=== PATIENT | female | born 1940 | race Caucasian/White ===

== ENCOUNTER → 2017-03-04 | Outpatient (CLI) | payer OTHER ==
[~2017-03-04] MED LIST: AMLODIPINE BESY10 MG; GLUCOPHAGE500 MG; LIPITOR40 MG; METOPROLOL SUCC25 M1; NAPROSYN375 MG PO; QUINU10 PD; SYNTHROID175 MCG
--- NOTE | ~2017-03-04 | 2DMMODE ---
[facility] [address] [place] [address] 2 D/M-MODE ECHOCARDIOGRAM Name: MARSHALL TREVIÑO Room #: [facility] [id number] Admission: 03/04/17 Attend Phys: Kole Raphael, Discharge: Date of : 36 Date of Service: 03/04/17 1807 Report #: [id number] THIS REPORT FOR: //name// APPROVED REPORT Study performed: 03/04/2017 13:34:35 EXAM: Comprehensive 2D, Doppler, and color-flow Echocardiogram Patient Location: Out-Patient Status: routine Other Information Study Quality: Poor Indications Hypertension/HDD Hx Dizziness, fell 2 weeks ago 2D Dimensions RVDd: 36.47 mm LVEF(%): 52.13 (>50%) IVSd: 11.53 (7-11mm) LVOT Diam: 19.91 (18-24mm) LVDd: 43.80 mm PWd: 10.86 (7-11mm) Ascending Ao: 35.23 (22-36mm) LVDs: 32.19 (25-40mm) Aortic Root: 29.91 mm IVC: 0.90 mm Villalpando's LVEF: 52.13 % Volumes Left Atrial Volume (Systole) Single Plane 4CH: 56.85 mL Single Plane 2CH: 60.41 mL LA ESV Index: 39.00 mL/m2 Aortic Valve AoV Peak Wade.: 1.66 m/s AO Peak Gr.: 11.81 mmHg LVOT Max P.51 mmHg LVOT Max V: 0.79 m/s OWEN Vmax: 1.48 cm2 Mitral Valve E/A Ratio: 0.7 MV Decel. Time: 335.39 ms MV E Max Wade.: 0.77 m/s MV A Wade.: 1.06 m/s MV PHT: 97.26 ms [facility] [place] [address] 2 D/M-MODE ECHOCARDIOGRAM Name: STROKEMARSHALL Room #: [facility]#: [id number] Admission: 03/04/17 Attend Phys: Kole Raphael, Discharge: Date of : 36 Date of Service: 03/04/17 1807 Report #: [id number] IVRT: 119.95 ms Pulmonary Valve PV Peak Wade.: 0.95 m/s PV Peak Gr.: 3.59 mmHg Pulmonary Vein P Vein S: 0.46 m/s P Vein A: 0.31 m/s P Vein D: 0.32 m/s P Vein A Dur.: 138.4 msec P Vein S/D Ratio: 1.44 Tricuspid Valve TR Peak Wade.: 2.53 m/s RAP Estimate: 5.00 mmHg TR Peak Gr.: 25.55 mmHg PA Pressure: 31.00 mmHg Left Ventricle The left ventricle is normal size. There is normal LV segmental wall motion. Borderline concentric left ventricular hypertrophy. The left ventricular systolic function is normal. The left ventricular ejection fraction is within the normal range. LVEF is 55%. Grade I - abnormal relaxation pattern. Right Ventricle The right ventricle is normal size. The right ventricular systolic function is normal. Atria Left atrium is dilated. The right atrium size is normal. Aortic Valve The aortic valve is not well visualized but appears mildly sclerotic No aortic regurgitation. There is no aortic valvular stenosis. Mitral Valve Mitral valve leaflets are mildly thickened. Mild mitral annular calcification. Mild mitral regurgitation. No evidence of mitral valve stenosis. Tricuspid Valve The tricuspid valve is normal in structure. There is trace tricuspid regurgitation. The right atrial pressure is estimated at 5 mmHg. There is mild pulmonary hypertension with an estimated PAP of 31 mmHg. Pulmonic Valve [place] [address] [place] [address] 2 D/M-MODE ECHOCARDIOGRAM Name: MARSHALL TREVIÑO Room #: REG CL [facility]#: [id number] Admission: 03/04/17 Attend Phys: Kole Raphael, Discharge: Date of : 36 Date of Service: 03/04/17 1807 Report #: [id number] The pulmonary valve is normal in structure. Trace pulmonic regurgitation. Great Vessels The aortic root is normal in size. The ascending aorta is normal in size. IVC is normal in size and collapses >50% with inspiration. Pericardium There is no pericardial effusion. <Conclusion> The left ventricular systolic function is normal. There is normal LV segmental wall motion. LVEF 55%. Grade I diastolic dysfunction Possible lipomatous hypertrophy of atrial septum The aortic valve is not well visualized but appears mildly sclerotic. No aortic regurgitation or stenosis. Mild mitral annular calcification. Mild mitral regurgitation. Pulmonary artery pressure of 30mmHg There is no pericardial effusion. <ELECTRONICALLY SIGNED> By: Kole Raphael MD, [facility] 03/04/171806 06 06 Kole Raphael MD, FAC /INF
== END ==
LOC: CV 07:13
DX: I10 Essential (primary) hypertension (principal); I34.0 Nonrheumatic mitral (valve) insufficiency; E78.5 Hyperlipidemia, unspecified

== ENCOUNTER → 2017-03-21 | Outpatient (CLI) | payer OTHER | LOC: MRI 13:01 | DX: G91.2 (Idiopathic) normal pressure hydrocephalus (principal) ==

== ENCOUNTER 2019-04-15 16:47 | Inpatient (IN) | payer OTHER ==
[~2019-04-15] VITALS: Ht 157.5 cm; Wt 69.6 kg
--- NOTE | ~2019-04-15 | HC ---
[facility] [place] [address] CONSULTATION Name: MARSHALL TREVIÑO Room #: 357-P ADM IN M.R.#: [id number] Admission: 04/15/19 Attend Phys: Venessa Cortez Discharge: Date of : 36 Report #: [id number] THIS REPORT FOR: //name// CC: Linus Reynolds DATE OF SERVICE: 04/19/2019 HISTORY OF PRESENT ILLNESS: The patient is an 78-year-old white female admitted with right-sided low back pain and bruise over her sacrum, right knee pain, acute renal insufficiency. She is noted to have lumbar spondylosis and has multiple prior vertebral compression fractures, thought to be either old or indeterminate. She has some right knee pain, thought to have suspected gout for which she has been started on colchicine with some overall improvement. X-rays of the right knee were negative. She has some gait instability, was noted to have decreased balance with retropulsive tendency and has been diagnosed with a neurologic gait dysfunction. She really has a multifactorial gait instability. PAST MEDICAL HISTORY: Includes hypertension, diabetes mellitus type 2, hyperlipidemia. She has had prior NPH with a CONTACT CLERK shunt, history of gout, abdominal aortic aneurysm. She has an abdominal wall ventral hernia without obstruction. MEDICATIONS: Please see the full medication listing. FAMILY HISTORY: Noncontributory. ALLERGIES: CODEINE, PENICILLIN, AND SULFA. SOCIAL HISTORY: Lives alone, house, one step. ____ utilized a cane. She does have a closely involved family. REVIEW OF SYSTEMS: Did not offer any current complaints of chest pain, shortness of breath or abdominal discomfort. PHYSICAL EXAMINATION: GENERAL: An 78-year-old white female in no obvious distress. VITAL SIGNS: Last recorded temperature 98.6, pulse 58, respirations 16, blood pressure 161/67. The patient is alert, pleasant. HEENT: Appeared to be benign. NEUROLOGIC: Cranial nerves grossly intact. Facies are symmetric. She has functional range of motion of the upper extremities. Strength is probably a grade 4-/5. She has some mild decrease with fine finger dexterity or understanding what I am asking for her to do fine finger dexterity. She does quite well with [id number]. Tone appeared to be intact. In her lower extremities, her right knee is tender. She has some discomfort moving the right lower extremity. There is no focal calf swelling. I would grade her strength [address] [address] CONSULTATION Name: MARSHALL TREVIÑO Room #: 357-P ADM IN M.R.#: [id number] Admission: 04/15/19 Attend Phys: Venessa Cortez Discharge: Date of : 36 Report #: [id number] at probably a 3+/5. DTRs were decreased. Functionally, she has been mod assist with sit to stand and mod assist ambulating with Hurricaine front-wheeled walker. She did have a sudden posterior loss of balance with max assist to catch her with a gait belt. ASSESSMENT: An 78-year-old white female with the following problem list: 1. Multifactorial gait instability. 2. Neurologic gait dysfunction with decreased balance and noted posterior loss of balance with mobility. 3. Suspected gout with right knee inflammation, appears some improved on colchicine. 4. Low back pain with lumbar spondylosis. 5. Multiple compression fractures noted on x-ray, which appear either old or indeterminate. 6. History of diabetes mellitus type 2. 7. Past history of normal pressure hydrocephalus, status post CONTACT CLERK shunt. 8. Elevated lipids. 9. Abdominal aortic aneurysm. 10. Abdominal wall ventral hernia without obstruction. PLAN: Occupational therapy is to eval. We are assessing the patient as far as her rehabilitation needs and we will be glad to follow up with you. By: [id number] [id number] Jorge Lino MD /nt
--- NOTE | ~2019-04-15 | D ---
[facility] [place] [address] DISCHARGE SUMMARY Name: MARSHALL TREVIÑO Room #: 357-P [facility] IN M.R.#: [id number] Admission: 04/15/19 Attend Phys: Venessa Cortez Discharge: 04/21/19 Date of : 36 Report #: [id number] THIS REPORT FOR: //name// CC: Linus Reynolds FINAL DIAGNOSES: 1. Acute right lower back pain. 2. Abdominal aortic aneurysm. 3. Renal cysts. 4. Hypertension. 5. Diabetes type 2. 6. Chronic kidney disease, stage 3. 7. Senile debility. 8. Ventral hernia. HOSPITAL COURSE: The patient was admitted after an injury at home where she either landed up against the wall or fell into the wall in her bathroom in the middle of the night, was complaining of right lower back pain. She was having trouble walking and there was bruising noted over the right SI joint area. X-rays all were negative for fracture. A CT through the ER revealed a ventral hernia with fat containing and evidence of her SURGERY TEACHER shunt in the region. There were bilateral renal cysts and there were signs of a 4.4 cm abdominal aortic aneurysm, which was only slightly enlarged compared to a study from 2009. Ultimately, the plan was conservative waitful watching on these issues. She was not having any neurologic or abdominal symptoms related to the shunt, the hernia or the aneurysm. Her pain was not related to these issues either, but more so incidental findings on CT. She complained of right knee pain, was treated for acute gout. X-ray suggested a CPPD type syndrome. Creatinine remained elevated around 1.6-1.7. In reviewing baseline labs from the office, it runs about 1.3-1.4. Metformin was discontinued. The majority of her blood sugars were in the mid-100 range. Her antihypertensives were readjusted. The family was concerned about her returning home alone; therefore, she was referred for inpatient rehabilitation. PHYSICAL EXAMINATION: On the day of discharge: GENERAL: She was awake and alert. VITAL SIGNS: Stable. LUNGS: Clear. HEART: Regular. ABDOMEN: Soft, normoactive bowel sounds. EXTREMITIES: No edema. DISPOSITION: She is being transferred to [facility] for inpatient rehabilitation. I will follow her stay there. Diabetic diet. Activity as tolerated. PT, OT. [address] [address] DISCHARGE SUMMARY Name: MARSHALL TREVIÑO Room #: 357-P DIS IN M.R.#: [id number] Admission: 04/15/19 Attend Phys: Venessa Cortez Discharge: 04/21/19 Date of : 36 Report #: [id number] DISCHARGE MEDICATIONS: Tramadol, Lidoderm patch, amlodipine 10 mg, Synthroid 175 mcg, Lipitor 40 mg, Toprol-XL 25 mg, aspirin 81 mg, quinapril 20 mg. By: 1221 1302 Jorge Cotto MD /armond
[~2019-04-15 16:47] MED LIST changes: -LIPITOR40 MG; +LIPITOR40 MG PO; -QUINU10 PD; +QUINU10 PD PO; -SYNTHROID175 MCG; +SYNTHROID175 MCG PO
[2019-04-15 16:53] VITALS: BP 209/88
[2019-04-15 17:49] LABS: URINE BILIRUBIN NEGATIVE (Negative); URINE BLOOD 1+ (Negative); URINE CLARITY CLEAR; URINE COLOR YELLOW; URINE GLUCOSE-RANDOM* NEGATIVE (Negative); URINE KETONES NEGATIVE (Negative); URINE LEUKOCYTES NEGATIVE (Negative); URINE NITRITE NEGATIVE (Negative); URINE PROTEIN (DIPSTICK) 2+ (Negative); URINE UROBILINOGEN 0.2 E.U./dl (0.2-1.0)
[2019-04-15 18:00] LABS: CASTS None Seen /LPF (None Seen); CRYSTALS None Seen /LPF (None Seen); SQUAMOUS 0-3 Few /LPF (0-3); URINE RBC 0-2 Rare /HPF (0-2); URINE WBC None Seen /HPF (0-5)
[2019-04-15 18:01] LABS: BACTERIA None Seen /HPF (None Seen)
[2019-04-15 18:26] LABS: ABSOLUTE NEUTROPHILS 5.8 thou/uL (1.4-8.2); BASOPHILS 0.6 % (0.0-2.0); EOSINOPHILS 2.4 % (0.0-3.0); HEMATOCRIT 42.5 % (37.0-47.0); HEMOGLOBIN 14.5 gm/dL (12.0-15.0); LYMPHOCYTES 17.7 % (24.0-44.0); MCH 31.2 pg (26.0-34.0); MCHC 34.1 g/dL (28.0-37.0); MCV 91.4 fL (80.0-100.0); MONOCYTES 7.4 % (1.0-8.0); PLATELET COUNT 184 thou/uL (150-400); POLYS 71.9 % (36.0-66.0); RBC 4.65 mil/uL (4.20-5.00)
[2019-04-15 18:36] LABS: ANION GAP 13 mmol/L (7-16); BUN 28 mg/dL (7-18); CHLORIDE 103 mmol/L (98-107); CO2 20 mmol/L (21-32); CREATININE 1.7 mg/dL (0.6-1.0); GLUCOSE 97 mg/dL (74-106); POTASSIUM 3.9 mmol/L (3.5-5.1); SODIUM 136 mmol/L (136-145)
[2019-04-15 18:47] LABS: ALBUMIN 3.6 g/dL (3.4-5.0); DIRECT BILIRUBIN < 0.1 mg/dL (<0.1-0.3); LIPASE 41 U/L (73-393); SGOT 19 U/L (15-37); SGPT 20 U/L (30-65); TOTAL BILIRUBIN 0.5 mg/dL (<0.1-1.0); TOTAL PROTEIN 6.9 g/dL (6.4-8.2); TROPONIN-I <0.06 ng/mL (<0.06)
[2019-04-15 22:31] VITALS: BP 185/81
[2019-04-15 22:37] VITALS: BP 185/81
[2019-04-15 23:01] VITALS: BP 197/84
[2019-04-15] MEDS ORDERED: ASPIR-LOW81 MG PO (23:47)
--- NOTE | 2019-04-16 03:42 | NUR ---
Admossion history and assessments completed. Careplan initiated. IVFluids infusing. High fall risk, fall precautions in place.
[2019-04-16 04:05] VITALS: BP 180/85
[2019-04-16 05:36] LABS: HEMATOCRIT 39.4 % (37.0-47.0); HEMOGLOBIN 13.7 gm/dL (12.0-15.0); MCH 31.6 pg (26.0-34.0); MCHC 34.7 g/dL (28.0-37.0); RBC 4.33 mil/uL (4.20-5.00); RDW 13.7 % (10.5-14.5); WBC 7.4 thou/uL (4.0-11.0)
[2019-04-16 05:59] LABS: CALCIUM 8.4 mg/dL (8.5-10.1); CREATININE 1.6 mg/dL (0.6-1.0); POTASSIUM 3.7 mmol/L (3.5-5.1); TOTAL BILIRUBIN 0.3 mg/dL (<0.1-1.0); TOTAL PROTEIN 5.9 g/dL (6.4-8.2)
[2019-04-16 07:27] VITALS: BP 214/89
--- NOTE | 2019-04-16 10:32 | NUR ---
ASSESSMENT: CM REVIEWED CHART AND MET WITH PATIENT AND HER DAUGHTER AT THE BEDSIDE. PT WAS ADMITTED WITH RIGHT SIDED FLANK PAIN/HTN. PT REPORTS SHE LIVES AT HOME IN A HOUSE ALONE. PT REPORTS ONE STEP TO ENTER THE HOME AND NO STEPS SHE HAS TO USE ONCE INSIDE. PT REPORTS SHE NORMALLY USES A CANE FOR AMBULATION. PT REPORTS SHE HAS A GRAB BAR AND SHOWER CHAIR AND IS INDEPENDENT WITH ADLS. PT REPORTS SHE ALSO HAS A WALKER AND WHEELCHAIR AT HOME WHICH SHE DOES NOT USE. PT REPORTS SHE HAS BEEN TO [facility] IN THE PAST FOR REHAB AND STATES SHE BELIEVES SHE HAS HAD HH IN THE PAST YEARS AGO BUT UNSURE THE AGENCY. CM DISCUSSED ROLE. PT STATING SHE HAS LIVED ALONE FOR 20 YEARS AND DONE FINE AND DOES NOT FEEL SHE NEEDS HH AT THIS TIME.
[2019-04-16 11:29] VITALS: BP 182/79
--- NOTE | 2019-04-16 14:10 | EKG ---
[place] [address] [facility] [place] [address] ELECTROCARDIOGRAM REPORT Name: STROKEMARSHALL Room #: 357-P ADM IN M.R.#: [id number] Admission: 04/15/19 Attend Phys: Venessa Cortez Discharge: Date of : 36 Report #: [id number] THIS REPORT FOR: //name// [facility] ED Test Date: 2019-04-15 Test Time: 18:12:51 Pat Name: MARSHALL STROKE Department: Room: 357 Gender: F Enroute Controller: Venessa ARRIAGA : 1940 Requested By: Elliot Arceo Order Number: [id number] MD: Kole Raphael Measurements Intervals Clayton Rate: 62 P: 21 MA: 206 QRS: -14 QRSD: 136 T: 161 QT: 437 QTc: 444 Interpretive Statements Sinus rhythm Nonspecific ST and T wave abnormality Compared to ECG 03/22/2004 07:32:05 ST and T wave abnormality is less pronounced Electronically Signed On 04-16-2019 14:10:27 CDT by Kole Raphael [email or web address] <ELECTRONICALLY SIGNED> By: Kole Raphael MD, [facility] 04/16/19 1410 181 11 Kole Raphael MD, [facility] /EPI
--- NOTE | 2019-04-16 14:28 | H ---
[facility] [place] [address] HISTORY AND PHYSICAL Name: MARSHALL TREVIÑO Room #: 357-P ADM IN M.R.#: [id number] Admission: 04/15/19 Attend Phys: Venessa Cortez Discharge: Date of : 36 Report #: [id number] THIS REPORT FOR: //name// CC: Linus Reynolds DATE OF SERVICE: 04/16/2019 ATTENDING PHYSICIAN: Dr. Karel Reynolds. CHIEF COMPLAINT: Right lower back pain. HISTORY OF PRESENT ILLNESS: The patient is an 78-year-old female who came to the Emergency Room yesterday with several-day history of pain in the lower back radiating around to the side near the lower portion of her ribs. She reports that on Friday night this week, she got up in the middle of the night to use the bathroom and lost her balance and fell up against a handrail on the wall. She thinks that she bumped her right lower back over the sacrum into the metal handrail. Initially, she did not think much of it. By the time she woke the next morning, she was complaining of pain in her lower back and it is radiating around to her ribs. She tried a heating pad, ice pack, topical treatment and Tylenol without much relief. Symptoms worsened yesterday and she came to the Emergency Room. Initially, she was describing right flank pain to them, but today she has noticed a bruise in the right lower back over the sacrum and has point tenderness in the area. She has not had any abdominal pain. PAST MEDICAL HISTORY: Hypertension, diabetes type 2, hypothyroidism, dyslipidemia, history of normal pressure hydrocephalus with a ANIMAL HOSPITAL OFFICE SUPERVISOR shunt placed about 15 years ago, history of gout, history of abdominal aortic aneurysm. PAST SURGICAL HISTORY: Noncontributory. FAMILY HISTORY: Unknown. SOCIAL HISTORY: She lives at home. No chronic alcohol or tobacco use. ALLERGIES: CODEINE, PENICILLIN and SULFA. MEDICATIONS: Naproxen, quinapril 10 mg, Levoxyl 175 mcg, Lipitor 40 mg, Toprol-XL 25 mg, metformin 500 mg. REVIEW OF SYSTEMS: She denies headache, chest pain, shortness of breath, abdominal pain, nausea, vomiting, diarrhea, constipation, dysuria, syncope. OBJECTIVE: VITAL SIGNS: Temperature 36.9, pulse 65, respirations 20, blood pressure 182/79, O2 sat 94% on room air. [address] [address] HISTORY AND PHYSICAL Name: MARSHALL TREVIÑO Room #: 357-P ADM IN M.R.#: [id number] Admission: 04/15/19 Attend Phys: Venessa Cortez Discharge: Date of : 36 Report #: [id number] GENERAL: She is awake and alert, in no distress. HEAD AND NECK: Unremarkable. LUNGS: Clear. HEART: Regular. ABDOMEN: Soft, normoactive bowel sounds. EXTREMITIES: No edema. BACK: She has point tenderness over the right sacroiliac joint. There is bruising in the area. She has no palpable abdominal tenderness. NEUROLOGIC: Cranial nerves intact. Speech is fluent. Motor strength intact. LABORATORY REVIEW: Creatinine is 1.6. CT of the abdomen reviewed. ASSESSMENT: 1. Right lower back pain. 2. Acute kidney injury, likely prerenal state. 3. Abdominal aortic aneurysm. 4. Hypertension. 5. Renal cyst. 6. Abdominal wall ventral hernia containing fat without obstruction. PLAN: She will continue IV fluids given the slight elevation of her creatinine and metformin will be held currently. Lab work will followup tomorrow. Her CO2 is slightly low, but her chloride is high and that may be compensated. There is no anion gap to suggest a significant acidosis and her lactic acid at admission was normal. The abdominal findings on CT all appear chronic in nature. These do not appear to be contributing to her pain as most of her symptoms are related over the sacroiliac joint. These issues on CT will be followed up as an outpatient. I have discussed it with the patient and her daughter at the bedside. For now, we will work on symptom treatment of her pain in her right lower back with increased activity. IV fluids to continue overnight with followup lab data and resumption of her home medications for hypertension treatment. <ELECTRONICALLY SIGNED> By: Jorge Cotto MD 04/16/19 1428 1203 1251 Jorge Cotto MD /nt
[2019-04-16 16:31] VITALS: BP 195/91
--- NOTE | 2019-04-16 18:32 | NUR ---
ASSUMED CARE OF PT AT 0700. PT ALERT AND ORIENTED IN NO ACUTE DISTRESS. PHYSICIAN NOTIFIED OF HIGH BLOOD PRESSURES - ORDERS RECEIVED - SHOWING SOME IMPROVEMENT. NEW PAIN MEDS ORDERED - GOOD RELIEF. MULTIPLE XRAYS TODAY. UP W/ 1 ASSIST TO BR. LIDOCAINE PATCH APPLIED. WILL CONT TO MONITOR.
[2019-04-16 19:16] VITALS: BP 197/90
[2019-04-16 23:49] VITALS: BP 180/88
--- NOTE | 2019-04-17 03:22 | NUR ---
PATIENT ALERT AND ORIENTED X4. UP TO BATHROOM WITH ASSIST OF ONE. ACCUCHECKS AC & HS. WAS 151, NO COVERAGE ORDERED. BP ELEVATED, DR'S AWARE. SLEPT OFF AND ON DURING NIGHT. C/O PAIN X1, MED GIVEN.
[2019-04-17 03:40] VITALS: BP 157/77
[2019-04-17 05:26] LABS: CALCIUM 7.9 mg/dL (8.5-10.1); CREATININE 1.7 mg/dL (0.6-1.0); POTASSIUM 3.8 mmol/L (3.5-5.1)
[2019-04-17 07:09] VITALS: BP 191/77
[2019-04-17 11:24] VITALS: BP 19/81
--- NOTE | 2019-04-17 15:25 | NUR ---
PATIENT STATED PAIN TO BACK HAS MOSTLY SUBSIDED BUT NOW COMPLAIN OF NEW PAIN TO RIGHT KNEE. PAIN INCREASES WITH AMBULATION. ALSO INCREASES WITH TOUCH. STATES SHE DOES NOT KNOW WHAT HAPPENED THAT SHE HAS THIS PAIN. SEE NEW ORDERS FOR XRAY. PRN PAIN MEDICATOIN ADMINISTERED. WILL CONT WITH PLAN OF CARE.
[2019-04-17 15:48] VITALS: BP 156/76
[2019-04-17 19:11] VITALS: BP 192/83
--- NOTE | 2019-04-18 02:04 | NUR ---
PATIENT WAS A NEW ADMISSION TO THE UNIT THIS SHIFT. HE ARRIVED VIA CART FROM THE ER AND WAS ABLE TO AMBULATE TO THE BED WITHOUT INCIDENT. PATIENT IS ALERT AND ORIENTED AND WILL BE ABLE TO PARTICIPATE IN HIS ADMISSION AND CALL APPROPRIATELY FOR NEEDS. CIWA Q4 PER ORDERS WITH PATIENT CURRENTLY SCORING ZERO. NURSE TO COMPLETE ADMISSION AND INITIATE PLAN OF CARE.
--- NOTE | 2019-04-18 03:30 | NUR ---
PATIENT IS PROGRESSING IN HER CARE PLAN. VITAL SIGNS MOSTLY STABLE WITH PATIENT EXHIBITING HYPERTENSION THROUGHOUT SHIFT. NURSE CONTACTED DOCTOR FOR TWO ONETIME ORDERS FOR TREATMENT WITH LITTLE EFFECTIVENESS. ALERT AND ORIENTED THROUGHOUT SHIFT, PATIENT IS ABLE TO CALL APPROPRIATELY FOR NEEDS AND PARTICIPATE IN CARE. PATIENT COMPLAINED FREQUENTLY OF BACK AND KNEE PAIN WHICH NURSE TREATED THROUGH MEDICATION AND NON PHARMACOLOGICAL INTERVENTION. UP MULTIPLE TIMES TO BATHROOM WITH ASSISTANCE INCIDENT FREE. PATIENT IS CONSIDERED A HIGH FALL RISK. CONTINUE PLAN OF CARE.
[2019-04-18 04:24] VITALS: BP 149/73
[2019-04-18 07:06] VITALS: BP 156/71
[2019-04-18 11:32] VITALS: BP 164/70
[2019-04-18 16:38] VITALS: BP 151/63
--- NOTE | 2019-04-18 17:52 | NUR ---
ASSUMED PATIENT CARE AT 0700. A/O X4. NO SOB ON RA. UP WITH ASSISTED, BP STABLE. PROGRESSING TOWARDS POC GOALS.
[2019-04-18 20:15] VITALS: BP 158/74
--- NOTE | 2019-04-19 03:20 | NUR ---
PATIENT IS ADVANCING SLOWLY IN HER CARE PLAN. VITAL SIGNS STABLE WITH BLOOD PRESSURE MUCH IMPROVED OVER YESTERDAY. PATIENT HAS HAD MANY COMPLAINTS OF PAIN IN BACK AND KNEE WHICH WERE TREATED APPROPRIATELY THROUGH MEDICATION AND NON PHARMACOLOGICAL INTERVENTION. FULLY ORIENTED, PATIENT IS ABLE TO CALL APPROPRIATELY FOR NEEDS AND PARTICIPATE IN CARE. UP MULTIPLE TIMES TO BATHROOM WITH ASSISTANCE INCIDENT FREE, PATIENT IS WEAK AND STILL CONSIDERED A HIGH FALL RISK. CONTINUE PLAN OF CARE.
[2019-04-19 03:59] VITALS: BP 141/60
[2019-04-19 07:20] VITALS: BP 153/69
[2019-04-19 11:47] VITALS: BP 161/67
[2019-04-19] MEDS ORDERED: TRAMADOL 50 MG50 MG PO (12:28)
[2019-04-19] MEDS ORDERED: LIDOPATCH1 EACH TRANSDERM (12:29)
--- NOTE | 2019-04-19 14:19 | NUR ---
ON-GOING ASSESSMENT: CM REVIEWED CHART AND MET WITH PATIENT AND HER TWO DAUGHTERS IN THE ROOM. CM SPOKE WITH THERAPY WHO JUST CAME OUT OF THE ROOM AND HAVE CONCERNS ABOUT PATIENT RETURNING HOME AND ARE RECOMMENDING ACUTE REHAB. CONSULT FOR 5N WAS PLACED AND 5 LIASON AWARE AND NOTIFIED. PT IS AGREEABLE TO 5N IF SHE QUALIFIES. PATIENTS DAUGHTERS VOICED CONCERN ABOUT INFORMATION BEING RELAYED TO THEM AND REPORT THEY HAVE MANY QUESTIONS FOR PHYSICIAN AND THEY ARE NOT SURE THEY ARE BEING ANSWERED. CM OFFERED TO REACH OUT TO ATTENDING AND THEY PREFERRED NOT TO. CM REACHED EATING DISORDER SPECIALIST TO NOTIFY AND SHE IS GOING TO COME TALK TO DAUGHRERS.
[2019-04-19 15:30] LABS: CALCIUM 8.2 mg/dL (8.5-10.1); CREATININE 1.7 mg/dL (0.6-1.0); POTASSIUM 3.9 mmol/L (3.5-5.1); URIC ACID* 5.2 mg/dL (2.6-7.2)
[2019-04-19 16:31] VITALS: BP 150/62
--- NOTE | 2019-04-19 16:36 | NUR ---
PATIENT SEEN BY DR. JOY THIS DATE FOR ACUTE REHAB CONSULT. PATIENT IS LIKELY A CANDIDATE FOR ACUTE REHAB STAY. AWAITING OT EVALUATION TO CONFIRM REHAB NEEDS. PT EVAL DEMONSTRATES FUNCTIONAL DEFICITS. UPON CONFIRMATION OF OCCUPATIONAL THERAPY NEEDS, PATIENT COULD BE ADMITTED TO REHAB UNIT WHEN MEDICALLY STABLE. THANK YOU FOR THIS REFERRAL.
--- NOTE | 2019-04-19 18:19 | NUR ---
ASSUMED PATIENT CARE AT 0700. A/O X4. FAMILY THINKING PATIENT CONFUSED. UP AMBULATED IN HALLWAY. NO SOB NOTED. SLOWLY TOWARDS POC GOALS.
[2019-04-19 19:03] VITALS: BP 162/67
--- NOTE | 2019-04-20 04:21 | NUR ---
PATIENT IS PROGRESSING IN HER CARE PLAN. VITAL SIGNS STABLE WITH PATIENT HAVING NO COMPLAINTS OF NAUSEA. PATIENT DID COMPLAIN OF PAIN IN RIGHT BACK/FLANK PAIN WHICH IS IMPROVED FROM PREVIOUS SHIFT AND WAS TREATED APPROPRIATELY THROUGH MEDICATION. FULLY ORIENTED, PATIENT IS ABLE TO CALL FOR NEEDS AND PARTICIPATE IN CARE. UP MULTIPLE TIMES TO BATHROOM WITH ASSISTANCE INCIDENT FREE. PATIENT AND FAMILY ARE ANXIOUS FOR POTENTIAL DISCHARGE TO REHAB SOON. CONTINUE PLAN OF CARE.
[2019-04-20 04:24] VITALS: BP 155/57
[2019-04-20 07:33] VITALS: BP 164/68
--- NOTE | 2019-04-20 10:06 | NUR ---
ON-GOING ASSESSMENT: 5N JESSICA REPORTED DUE TO PATIENTS DIAGNOSIS THEY LIKELY WILL NOT HAVE A BED AVAILABLE. CM MET WITH PATIENT AND HER DAUGHTER TO DISCUSS. ALL DAUGHTERS SPOKE WITH PATIENT AND THEY WANTED A REFERRAL SENT TO [facility]. CM FAXED REFERRAL AND WAITING TO HEAR BACK.
[2019-04-20 13:16] VITALS: BP 163/73
--- NOTE | 2019-04-20 15:08 | NUR ---
PATIENT FAMILY AT BEDSIDE, FALL PRECAUTIONS IN PLACE. PATIENT AGREES TO CALL FOR ASSIST. AMBULATES W/ STANDBY ASSIST USING WALKER & GAIT BELT. VSS, AOX4. PATIENT REPORTS PAIN IS MANAGED WITH MEDICATION & REPOSITIONING.
[2019-04-20 16:13] VITALS: BP 171/72
[2019-04-20 19:21] VITALS: BP 156/61
[2019-04-21 03:02] VITALS: BP 146/62
--- NOTE | 2019-04-21 06:34 | NUR ---
FOLLOWING POC TO PROGRESS TO DC GOALS TO MAR. PT PAIN CONTROLLED BY LIDO PATCH AND ORAL TRAMADOL. PT IS A/0 4 AND AMBULATES TO BATHROOM/BSC X1 WITH A WALKER. HOURLY ROUNDING.
[2019-04-21 07:17] VITALS: BP 144/64
[2019-04-21] MEDS ORDERED: AMLODIPINE BESY10 MG PO (09:09)
[2019-04-21 11:13] VITALS: BP 124/56
[2019-04-21] MEDS ORDERED: QUINU10 PD PO (12:18)
--- NOTE | 2019-04-21 12:30 | NUR ---
ON-GOING ASSESSMENT: JENY HAS ORDERS FOR PATIENT TO DISCHARGE TO [facility] TODAY. JENY SPOKE WITH VINH AT [facility] WHO HAS ARRANGED TRANSPORTATION TO PICK HER UP AT 3PM. CM NOTIFIED PATIENT AND FAMILY. CHART COPY WAS ORDERED AND CM NOTIFIED [employer] DELIVERY DRIVER TO UPDATE. JENY SPOKE WITH BEDSIDE RN TO NOTIFY OF DISCHARGE TIME AND NUMBER TO CALL REPORT. PT REPORTS NO FURTHER QUESTIONS FROM CM. CM FAXED D/C ORDERS TO [facility].
--- NOTE | 2019-04-21 14:41 | NUR ---
ASSUMED CARE OF PT AT 0700 THIS SHIFT. PT HAS BEEN COOPERATIVE, HAS HAD SOME SLIGHT PAIN IN HER BACK/HIP. PT IS FEELING WELL, READY TO GO TO REHAB SOON SHE CAN. PT HAS BEEN RESTING COMFORTABLY IN ROOM THIS SHIFT, ASSESSMENTS ARE DOCUMENTED. PT HAS HAD FAMILLY VISIT THIS SHIFT, EDUCATION WAS PROVIDED. PLAN OF CARE IS TO TRANSFER PT OUT TO REHAB THIS SHIFT. [facility]
== END 2019-04-21 15:40 | DRG 552 ==
LOC: ER 16:47 → 3W 22:07 → EROBS 22:07 → 3W 22:44
PROVIDERS: Internal Medicine Geriatric Medicine; Nurse Practitioner; ADMIT Internal Medicine
DX: M47.896 Other spondylosis, lumbar region (principal); N17.9 Acute kidney failure, unspecified; I71.4 Abdominal aortic aneurysm, without rupture; E03.9 Hypothyroidism, unspecified; M10.9 Gout, unspecified; E78.5 Hyperlipidemia, unspecified; Z60.2 Problems related to living alone; K43.9 Ventral hernia without obstruction or gangrene; I12.9 Hypertensive chronic kidney disease with stage 1 through stage 4 chronic kidney disease, or unspecified chronic kidney disease; N28.1 Cyst of kidney, acquired; N18.3 Chronic kidney disease, stage 3 (moderate); E11.22 Type 2 diabetes mellitus with diabetic chronic kidney disease; Z88.6 Allergy status to analgesic agent; Z88.0 Allergy status to penicillin; Z88.2 Allergy status to sulfonamides; Z79.899 Other long term (current) drug therapy; W18.39XA Other fall on same level, initial encounter; Y93.89 Activity, other specified; Y92.89 Other specified places as the place of occurrence of the external cause; Y99.8 Other external cause status
CPT/HCPCS: 10879